=== PATIENT | female | born 1960 | race Caucasian/White ===

== ENCOUNTER 2021-12-09 13:45 | Emergency (ER) | payer MEDICAID ==
[2021-12-09] MEDS ORDERED: ALBUTEROL 1 PUFF INH STA (14:36)
--- NOTE | 2021-12-09 14:38 | XRAY Report ---
PROCEDURE: Chest 1 View X-Ray INDICATIONS: SOA TECHNIQUE: One view of the chest was acquired. COMPARISON: None FINDINGS: Surgical changes and devices: None. Lungs and pleura: No pleural effusions or pneumothorax. Lungs are clear. Mediastinum: Mediastinal contours appear normal. Heart size is normal. Bones and chest wall: No suspicious bony lesions. Overlying soft tissues appear unremarkable. IMPRESSION: No acute cardiopulmonary process demonstrated radiographically. Reviewed by: Yoni Singleton MD on 12/09/2021 2:37 PM PDT Approved by: Yoni Singleton MD on 12/09/2021 2:37 PM PDT Station ID: [id number]
--- NOTE | 2021-12-09 14:39 | ED Physician Documentation ---
History of Present Illness - Stated complaint Stated Complaint: COUGH/WEAKNESS - Chief complaint Chief Complaint: General - Additonal information Additional information: 61-year-old female who has a history of COPD presents emergency department for evaluation of 2 weeks productive cough as well as generalized body aches. She denies any fevers. She just completed a course of azithromycin as well as a steroid burst. She has been out of her Spiriva for about 2 weeks and can fill it tomorrow. She is not yet vaccinated for COVID-19. She denies nausea or vomiting, loss of taste or smell. Denies any chest spurring or exertional dyspnea. Review of Systems Constitutional: reports: Myalgias, Fatigue. denies: Fever, Chills Eyes: reports: Reviewed and negative Nose: reports: Reviewed and negative Throat: reports: Reviewed and negative Cardiac: reports: Reviewed and negative Respiratory: reports: Dyspnea, Cough. denies: Hemoptysis, Wheezing GI: reports: Reviewed and negative : reports: Reviewed and negative Skin: reports: Reviewed and negative Musculoskeletal: reports: Reviewed and negative PD PAST MEDICAL HISTORY - Present Medications Home Medications: Ambulatory Orders Medication Instructions Recorded Confirmed Benzonatate [Tessalon] 200 mg PO TID PRN #20 cap 12/09/21 - Allergies Allergies/Adverse Reactions: Allergies Allergy/AdvReac Type Severity Reaction Status Date / Time No Known Drug Allergies Allergy Verified 12/09/21 13:54 PD ED PE NORMAL - General General: Alert and oriented X 3, No acute distress, Well developed/nourished - HEENT HEENT: Atraumatic, Moist mucous membranes, Pharynx benign - Neck Neck: Supple, no meningeal sign, No adenopathy - Cardiac Cardiac: RRR, No murmur - Respiratory Respiratory: No respiratory distress, Clear bilaterally - Abdomen Abdomen: Normal bowel sounds, Soft, Non tender - Derm Derm: Normal color, Warm and dry, No rash - Extremities Extremities: No deformity, No tenderness to palpate, Normal ROM s pain - Neuro Neuro: Alert and oriented X 3, census clerk 2-12 intact Eye Opening: Spontaneous Motor: Obeys Commands Verbal: Oriented GCS Score: 15 Results - Vitals Vitals: Vital Signs - 24 hr 12/09/21 13:49 Temperature 36.8 C Heart Rate 108 H Respiratory 18 Rate Blood Pressure 120/79 O2 Saturation 96 Oxygen O2 Source Room air - Rads (name of study) cxr Radiology: Final report received (No acute cardiopulmonary process) PD MEDICAL DECISION MAKING - ED course Complexity details: reviewed results, re-evaluated patient, considered differential, d/w patient ED course: 61-year-old female who has a history of COPD presents emergency department for evaluation of body aches and cough. She has a baseline cough that has been somewhat worse over the last 2 weeks. She recently completed a course of steroids as well as azithromycin for suspected COPD/bronchitis. Chest x-ray today is unrevealing without findings of pneumonia or any focal infiltrates. Her cardiopulmonary auscultation is also reassuring no wheeze or rhonchi was noted. Room air saturations are 100%. Patient is not yet vaccinated for COVID- 19 and this screen is pending. She has been out of her Spiriva for about 2 weeks and is going to be able to fill it tomorrow. I do suspect that this may be a contributing cause for her worsening cough. She did receive albuterol here in the emergency department using a spacer which she feels is helpful thus she will be discharged with a spacer. She does have albuterol refills available at home. Prescription for Tessalon Perles is sent to the pharmacy. Patient is adamant that she will never receive the COVID-19 vaccination but she is interested in knowing if she could have Covid as a cause for her body aches and myalgias. Departure - Departure Disposition: 01 Home, Self Care Clinical Impression: Cough, History of COPD, Myalgia Condition: Stable Record reviewed to determine appropriate education?: Yes Prescriptions: Benzonatate [Tessalon] 200 mg PO TID PRN #20 cap PRN Reason: Cough Comments: Evelyne you are seen today in the emergency department for cough and body aches. Your chest x-ray is essentially normal. There are no findings to suggest pneumonia. As we discussed at the bedside I suspect that one of the reasons you have had a more persistent cough recently has been that you are out of the Spiriva. It is important that you fill this tomorrow and begin taking as prescribed. If you are going to use the albuterol at home I do recommend that you always use the spacer. The spacer ensures that the medication is aerosolized and you are able to breathe it into your lungs instead of simply spraying the back of your mouth. A prescription for Tessalon Perles has been sent to the [facility] in [place]. This may help reduce the severity of your cough. We do have a COVID-19 test pending on you. I do recommend that you get the COVID-19 vaccination when you are able. If at any point you find that your cough is worsening, you have fevers, severe shortness of air or chest pain then please return immediately to the ER for a second evaluation.
[2021-12-09 15:14] VITALS: BP 114/70
== END 2021-12-09 15:11 | disposition home or self-care (01) ==
LOC: ED 13:45
DX: J44.9 Chronic obstructive pulmonary disease, unspecified (principal); R05.9 Cough, unspecified; M79.10 Myalgia, unspecified site; Z20.822 Contact with and (suspected) exposure to COVID-19
CPT/HCPCS: 94640; 94664; 99283; 99284

== ENCOUNTER 2022-01-19 13:40 | Emergency (ER) | payer MEDICAID ==
[2022-01-19 13:51] VITALS: BP 117/80
[2022-01-19 14:10] LABS: BASOPHILS % (AUTO) 0.5 %; EOSINOPHILS % (AUTO) 0.2 %; HCT - HEMATOCRIT 38.6 % (37.0-47.0); HGB - HEMOGLOBIN 13.3 g/dL (12.0-16.0); LYMPHOCYTES # (AUTO) 1.7 10^3/uL (1.5-3.5); LYMPHOCYTES % (AUTO) 37.8 %; MEAN CORPUSCULAR HEMOGLOBIN 29.1 pg (27.0-31.0); MEAN CORPUSCULAR HGB CONC 34.5 g/dL (32.0-36.0); MEAN CORPUSCULAR VOLUME 84.5 fL (81.0-99.0); MEAN PLATELET VOLUME 9.4 fL (7.9-10.8); MONOCYTES # (AUTO) 0.3 10^3/uL (0.0-1.0); MONOCYTES % (AUTO) 6.6 %; NEUTROPHILS # (AUTO) 2.4 10^3/uL (1.5-6.6); NEUTROPHILS % (AUTO) 54.9 %; PLT - PLATELET COUNT 141 10^3/uL (130-450); RED BLOOD COUNT 4.57 10^6/uL (4.20-5.40); WHITE BLOOD COUNT 4.4 x10^3/uL (4.8-10.8)
--- NOTE | 2022-01-19 14:13 | ED Physician Documentation ---
PD HPI ABD PAIN - Stated complaint Stated Complaint: ABD PX - Chief complaint Chief Complaint: Abd Pain - History obtained from History obtained from: Patient - History of Present Illness Timing - onset: How many days ago (3-4) Timing - duration: Days (has had umbilical hernia for months and saw surgeon in [place] before moving here recently. It has been more painful and larger the past few days. Has had firm stools/constipation as well. Does not yet have local providers. Has applied to change type for [place] insurance that will start on February 09.) Timing - details: Gradual onset, Intermittant Quality: Cramping, Aching, Pain Location: Periumbilical Radiation: No: Lower back Improved by: Position (standing and lifting is when the hernia most noticable. Lying down is least.) Associated symptoms: Constipation. No: Fever, Nausea, Vomiting, Diarrhea Similar symptoms before: Diagnosis (umbilical hernia) Review of Systems Constitutional: denies: Fever, Chills Nose: denies: Rhinorrhea / runny nose, Congestion Throat: denies: Sore throat Respiratory: denies: Cough GI: reports: Abdominal Pain, Nausea, Constipation. denies: Vomiting, Diarrhea : denies: Dysuria PD PAST MEDICAL HISTORY - Past Medical History Cardiovascular: None Respiratory: None - Present Medications Home Medications: Ambulatory Orders Medication Instructions Recorded Confirmed Benzonatate [Tessalon] 200 mg PO TID PRN #20 cap 12/09/21 Tiotropium [place] [Spiriva] 2 puffs INH DAILY 30 Days #1 each 12/11/21 Docusate Sodium 100Mg Capsule 100 mg PO BID 15 Days #30 cap 01/19/22 [Colace 100Mg Capsule] Ibuprofen [Motrin] 600 mg PO TID PRN #25 tab 01/19/22 - Allergies Allergies/Adverse Reactions: Allergies Allergy/AdvReac Type Severity Reaction Status Date / Time No Known Drug Allergies Allergy Verified 01/19/22 13:51 PD ED PE NORMAL - Vitals Vital signs reviewed: Yes - General General: Alert and oriented X 3, No acute distress, Well developed/nourished - Cardiac Cardiac: RRR, No murmur - Respiratory Respiratory: Clear bilaterally - Abdomen Abdomen: Normal bowel sounds, Soft, Non tender, Non distended, No organomegaly, Other (infraumbilical hernia noted standing, but soft and reducible. Lying down it mostly disappears, but I can feel hernia defect that feels about 3 cm size. ) - Derm Derm: Normal color, Warm and dry Results - Vitals Vitals: Vital Signs - 24 hr 01/19/22 13:47 Temperature 35.9 C L Heart Rate 79 Respiratory 14 Rate Blood Pressure 117/80 O2 Saturation 95 Oxygen O2 Source Room air - Labs Labs: Laboratory Tests 01/19/22 01/19/22 01/19/22 14:02 14:02 14:18 WBC 4.4 L RBC 4.57 Hgb 13.3 Hct 38.6 MCV 84.5 MCH 29.1 MCHC 34.5 RDW 12.0 Plt Count 141 MPV 9.4 Neut # (Auto) 2.4 Lymph # (Auto) 1.7 Marion # (Auto) 0.3 Eos # (Auto) 0.0 Baso # (Auto) 0.0 Absolute Nucleated RBC 0.00 Nucleated RBC % 0.0 Sodium 138 Potassium 3.8 Chloride 103 Carbon Dioxide 24 Anion Gap 11.0 BUN 19 Creatinine 0.8 Estimated GFR (MDRD) 73 L Glucose 96 Calcium 9.6 Total Bilirubin 0.5 AST 17 ALT 13 Alkaline Phosphatase 48 Total Protein 6.9 Albumin 4.3 Globulin 2.6 Albumin/Globulin Ratio 1.7 Lipase 35 Urine Color YELLOW Urine Clarity CLEAR Urine pH 6.0 Ur Specific [place] >=1.030 H Urine Protein NEGATIVE Urine Glucose (UA) NEGATIVE Urine Ketones NEGATIVE Urine Occult Blood NEGATIVE Urine Nitrite NEGATIVE Urine Bilirubin NEGATIVE Urine Urobilinogen 0.2 (NORMAL) Ur Leukocyte Esterase NEGATIVE Ur Microscopic Review NOT INDICATED Urine Culture Comments NOT INDICATED PD MEDICAL DECISION MAKING - ED course Complexity details: considered differential (has umbilical hernia that is hurting more recently, and has had some constipation, so likely that is increaseing abd pressure. Not incarcerated and does not seem causing obstruction. Can refer to Surgery and also local primary care clinics. ), d/w patient Departure - Departure Disposition: 01 Home, Self Care Clinical Impression: Umbilical hernia Qualifiers: Obstruction and gangrene presence: without obstruction or gangrene Qualified Code(s): K42.9 - Umbilical hernia without obstruction or gangrene Constipation Qualifiers: Constipation type: unspecified constipation type Qualified Code(s): K59.00 - Constipation, unspecified Condition: Stable Record reviewed to determine appropriate education?: Yes Instructions: ED Hernia Inguinal Follow-Up: Jorge L Mcclure MD [Provider Admit Priv/Credential] - Surgical Care [Provider Group] [facility] [place] [Provider Group] [facility] [Provider Group] Prescriptions: Docusate Sodium 100Mg Capsule [Colace 100Mg Capsule] 100 mg PO BID 15 Days #30 cap Ibuprofen [Motrin] 600 mg PO TID PRN #25 tab PRN Reason: Pain Comments: Stay well-hydrated. Use daily stool softener, I would suggest twice daily for the next week or so and then once a day after that for her soft stools. This will help reduce the amount of protrusion of the hernia. You can also use an anti-inflammatory such as ibuprofen 2-3 times daily to help with pain or discomfort. I provided a couple of names for primary care groups in [place] and also to the surgical groups. Call the surgical groups and arrange a follow-up appointment for when your insurance kicks in at the beginning of the month. You will need to consult with surgery regarding subsequent repair of the hernia. Return to the ER if significant pain, tenderness, vomiting or other concerns with the hernia that may suggest it being trapped or causing an obstruction. Discharge Date/Time: 01/19/22 15:04
[2022-01-19 14:19] LABS: ALBUMIN 4.3 g/dL (3.2-5.5); ALBUMIN/GLOBULIN RATIO 1.7 (1.0-2.2); BILIRUBIN,TOTAL 0.5 mg/dL (0.2-1.0); CALCIUM 9.6 mg/dL (8.5-10.3); CREATININE 0.8 mg/dL (0.4-1.0); POTASSIUM 3.8 mmol/L (3.5-5.0); TOTAL PROTEIN 6.9 g/dL (6.7-8.2)
[2022-01-19 14:25] LABS: BILIRUBIN,URINE NEGATIVE (NEGATIVE); GLUCOSE, URINE (UA) NEGATIVE (NEGATIVE); KETONES,URINE (UA) NEGATIVE (NEGATIVE); LEUKOCYTE ESTERASE, URINE NEGATIVE (NEGATIVE); NITRITE,URINE NEGATIVE (NEGATIVE); OCCULT BLOOD,URINE NEGATIVE (NEGATIVE); PROTEIN,URINE NEGATIVE (NEGATIVE); UROBILINOGEN,URINE 0.2 (NORMAL) E.U./dL (NORMAL)
[2022-01-19 14:46] LABS: CLARITY,URINE CLEAR (CLEAR)
[2022-01-19] MEDS: ACETAMINOPHEN 325 MG TABLET PO STA (15:04)
[2022-01-19] MEDS: IBUPROFEN 400 MG TABLET PO STA (15:04)
[2022-01-19] MEDS: DOCUSATE SODIUM 100 MG CAPSULE PO STA (15:04)
== END 2022-01-19 15:04 | disposition home or self-care (01) ==
LOC: ED 13:40
DX: K42.9 Umbilical hernia without obstruction or gangrene (principal); R19.7 Diarrhea, unspecified
CPT/HCPCS: 36415; 80053; 81003; 83690; 85025; 99283; 99284; A9270; 81001; 87086

== ENCOUNTER 2022-05-09 08:00 | Outpatient (CLI) | payer MEDICAID ==
[2022-05-09 18:10] LABS: BILIRUBIN,URINE NEGATIVE (NEGATIVE); GLUCOSE, URINE (UA) NEGATIVE (NEGATIVE); KETONES,URINE (UA) NEGATIVE (NEGATIVE); LEUKOCYTE ESTERASE, URINE NEGATIVE (NEGATIVE); NITRITE,URINE NEGATIVE (NEGATIVE); OCCULT BLOOD,URINE NEGATIVE (NEGATIVE); PROTEIN,URINE NEGATIVE (NEGATIVE); UROBILINOGEN,URINE 0.2 (NORMAL) E.U./dL (NORMAL)
[2022-05-09 18:29] LABS: BACTERIA,URINE None Seen /HPF (None Seen); CLARITY,URINE CLEAR (CLEAR); RBC,URINE None Seen /HPF (0-5); SQUAMOUS EPITHELIAL CELL,UR FEW Squamous (<= Few); WBC,URINE 0-3 /HPF (0-5)
== END 2022-05-09 23:59 | disposition home or self-care (01) ==
LOC: LAB.N 08:00
PROVIDERS: ATTEND Nurse Practitioner Family
DX: R35.1 Nocturia (principal); R39.14 Feeling of incomplete bladder emptying
CPT/HCPCS: 81001; 87086

== ENCOUNTER 2022-05-11 14:44 | Emergency (ER) | payer MEDICAID ==
[2022-05-11 14:56] VITALS: BP 126/86
--- NOTE | 2022-05-11 15:11 | ED Physician Documentation ---
History of Present Illness - Stated complaint Stated Complaint: LEFT KNEE INJ - Chief complaint Chief Complaint: Trauma Ext - Additonal information Additional information: 61-year-old female presents emergency department for evaluation of acute left knee pain. She reports being intoxicated 5 nights ago and falling. She does not remember the events of the fall. When she woke up the next morning in her bed she had some pain on the medial portion of the knee. There is really no pain at rest but only when she is bearing weight or attempts to elevate the leg. No swelling or ecchymosis. No history of similar in the past. She is not anticoagulated. Denies striking her head or pain elsewhere after the fall Review of Systems Constitutional: reports: Reviewed and negative Ears: reports: Reviewed and negative Throat: reports: Reviewed and negative GI: reports: Reviewed and negative Musculoskeletal: reports: Joint pain Neurologic: reports: Reviewed and negative Psychiatric: reports: Reviewed and negative PD PAST MEDICAL HISTORY - Past Medical History Past Medical History: No Cardiovascular: None Respiratory: None - Present Medications Home Medications: Ambulatory Orders Medication Instructions Recorded Confirmed Benzonatate [Tessalon] 200 mg PO TID PRN #20 cap 12/09/21 Tiotropium [place] [Spiriva] 2 puffs INH DAILY 30 Days #1 each 12/11/21 Docusate Sodium 100Mg Capsule 100 mg PO BID 15 Days #30 cap 01/19/22 [Colace 100Mg Capsule] Ibuprofen [Motrin] 600 mg PO TID PRN #25 tab 01/19/22 - Allergies Allergies/Adverse Reactions: Allergies Allergy/AdvReac Type Severity Reaction Status Date / Time No Known Drug Allergies Allergy Verified 05/11/22 14:56 - Social History Does the pt smoke?: No Smoking Status: Never smoker PD ED PE EXPANDED - General General: Alert, No acute distress - Extremities Extremities: Left knee (normal flexion/extension leg. No laxity, negative grind test. 2+ DP pulse distally) Results - Vitals Vitals: Vital Signs - 24 hr 05/11/22 14:53 Temperature 36.8 C Heart Rate 85 Respiratory 16 Rate Blood Pressure 126/86 H O2 Saturation 98 Oxygen O2 Source Room air - Rads (name of study) left knee Radiology: Final report received (Mild to moderate tricompartmental arthritis. No acute fracture or dislocation. Moderate suprapatellar joint effusion) PD MEDICAL DECISION MAKING - ED course Complexity details: considered differential, d/w patient ED course: 61-year-old female presents emergency department for evaluation of acute left knee pain sustained after falling 4 nights ago when intoxicated. She did not appear to sustain any other traumatic injury. She has some pain on the lateral portion of the knee. X-ray shows a small amount of suprapatellar joint effus ion. There is no laxity on exam. X-ray does show that she has some moderate tricompartmental arthritis. These findings were discussed with the patient. She was placed in an Elver bandage. Recommend Tylenol and ibuprofen at home. Crutches were given to aid in ambulation. Advise if not markedly better in 7 to 10 days should follow-up with PCP. May benefit from referral to orthopedics or physical therapy at that time. Departure - Departure Disposition: 01 Home, Self Care Clinical Impression: Arthritis of left knee Left knee sprain Qualifiers: Encounter type: initial encounter Involved ligament of knee: other ligament Qualified Code(s): S83.8X2A - Sprain of other specified parts of left knee, initial encounter Condition: Stable Record reviewed to determine appropriate education?: Yes Instructions: ED Sprain Knee Comments: You are seen today for pain in the left knee after falling a number of days ago. I suspect that you sprained the knee. The x-ray however does show that you have fairly moderate arthritis in all the joints of the knee. I would like you to wear the Elver wrap when out of bed for the next week or so. You can take Tylenol and ibuprofen [id number]. You can use the crutches to aid in ambulation. If you find that despite this treatment your symptoms or not ge tting better your primary care doctor may want to make a referral for you to physical therapy or orthopedics for further follow-up
--- NOTE | 2022-05-11 15:30 | XRAY Report ---
PROCEDURE: Knee 3 View LT INDICATIONS: pain after a fall TECHNIQUE: 3 views of the left knee(s) were acquired. COMPARISON: None. FINDINGS: Bones: No fractures or dislocations. Mild to moderate tricompartmental osteoarthritis is noted more prominent in medial femoral tibial compartment. No suspicious bony lesions. Soft tissues: Moderate suprapatellar joint effusion is seen. No suspicious soft tissue calcificatio ns. IMPRESSION: Mild to moderate tricompartmental osteoarthritis. No acute fracture or dislocation. Mode rate suprapatellar joint effusion. Reviewed by: Vince Alex MD on 05/11/2022 3:28 PM PDT Approved by: Vince Alex MD on 05/11/2022 3:28 PM PDT Station ID: [id number]
== END 2022-05-11 16:37 | disposition home or self-care (01) ==
LOC: ED 14:44
DX: M17.12 Unilateral primary osteoarthritis, left knee (principal); S83.8X2A Sprain of other specified parts of left knee, initial encounter; W19.XXXA Unspecified fall, initial encounter
CPT/HCPCS: 99282; 99283

== ENCOUNTER 2022-05-19 09:17 | Outpatient (CLI) | payer MEDICAID ==
--- NOTE | 2022-05-20 08:04 | Mammography Report ---
BILATERAL DIGITAL SCREENING MAMMOGRAM 3D/2D: 05/19/2022 CLINICAL: Baseline exam. Routine screening. No prior exams were available for comparison. Both breasts are heterogeneously dense, which may obscure small masses (category c / 51-75% glandula r tissue). No significant masses, calcifications, or other findings are seen in either breast. IMPRESSION: NEGATIVE There is no mammographic evidence of malignancy. A 1 year screening mammogram is recommended. Based on the Tyrer Cuzick model (a risk assessment model) the patients lifetime risk is 8.0% and her 10 year risk is 3.1%. According to the ACR, ACS, and NCCN guidelines, an annual breast MRI exam lilia g with mammogram is recommended if the patients lifetime risk is 20% or greater. This exam was interpreted at Station ID: [id number]. NOTE: For mammograms, a report in lay terms will be sent to the patient. Approximately 15% of breast malignancies will not be visualized mammographically. In the management of a palpable breast mass, a negative mammogram must not discourage biopsy of a clinically suspicious lesion. Electronically Signed By: Sumit Reynolds M.D. slc/penrad:05/19/2022 12:40:30 ACR BI-RADS Category 1: Negative 3341F PARENCHYMAL PATTERN: (D) - The breast(s) demonstrate(s) heterogeneously dense fibroglandular tiffany morales. BI-RADS CATEGORY: (1) - 1 RECOMMENDATION: (ANNUAL) - Recommend routine annual screening mammography. [id number] 1 year screening LATERALITY: (B)
== END 2022-05-19 09:18 | disposition home or self-care (01) ==
LOC: DI.N 09:17
PROVIDERS: ATTEND Nurse Practitioner Family
DX: Z12.31 Encounter for screening mammogram for malignant neoplasm of breast (principal)

== ENCOUNTER 2022-07-22 15:23 | Outpatient (CLI) | payer MEDICAID ==
--- NOTE | 2022-07-22 17:37 | CT Report ---
PROCEDURE: Abdomen and pelvis without INDICATIONS: VENTRAL HERNIA CONTRAST: None TECHNIQUE: After the administration of oral contrast, 5 mm thick sections acquired from the diaphragms to the pe lvis. 5 mm coronal and sagittal reformats were then performed. For radiation dose reduction, the fo llowing was used: automated exposure control, adjustment of mA and/or kV according to patient size. COMPARISON: None FINDINGS: Image quality: Excellent Lower chest: Basal atelectasis/scarring. Solid organs: Evaluation is limited by lack of intravenous contrast. The liver is unremarkable. Gallb ladder is underdistended. No biliary ductal dilation or pancreatic ductal dilation. Bulging contour o f the spleen measuring up to 5.6 cm at the hilum may represent a large splenule or other angiomatous lesion of the spleen, indeterminate. No adrenal nodules. Bosniak 1 and 2 renal lesions are present, for which no dedicated follow-up is ne cessary per 2019 proposed guidelines. No hydronephrosis. Vessels and lymph nodes: No abdominal aortic aneurysm. No pathologic adenopathy by size criteria. Bowel and peritoneum: No bowel obstruction or pathologic ascites. There are colonic diverticula. Body wall: Midline ventral hernia containing fat and omentum is seen, with neck measuring 2.3 x 2.5 c m. The omentum is mildly congested in this region. Prior midline incision scar is present. Pelvis: Not well evaluated, hysterectomy. Bones: No acute or suspicious osseous abnormality. There are degenerative changes. IMPRESSION: Midline ventral hernia as described above, containing mildly congested omentum and fat. Other incidental findings above. The indeterminate splenic finding can be further evaluated with MRI. If the patient does not have a primary history of malignancy, this is favored to be benign. Reviewed by: Carlos Cruz MD on 07/22/2022 5:35 PM PST Approved by: Carlos Cruz MD on 07/22/2022 5:35 PM PST Station ID: [id number]
== END 2022-07-22 15:24 | disposition home or self-care (01) ==
LOC: DI 15:23
PROVIDERS: ATTEND Surgery
DX: K43.2 Incisional hernia without obstruction or gangrene (principal)

== ENCOUNTER 2022-08-13 15:15 | Outpatient (CLI) | payer MEDICAID ==
--- NOTE | 2022-08-13 15:53 | XRAY Report ---
PROCEDURE: Chest 2 View X-Ray INDICATIONS: CONGESTION OF NASAL SINUS TECHNIQUE: 2 views of the chest were acquired. COMPARISON: 12/09/2021 FINDINGS: Surgical changes and devices: None. Lungs and pleura: No pleural effusions or pneumothorax. Lungs are clear. Mediastinum: Mediastinal contours are normal. Heart size is normal. Bones and chest wall: No suspicious bony abnormalities. Age-appropriate degenerative changes are see n. Soft tissues appear unremarkable. IMPRESSION: Clear lungs, without infiltrates. Reviewed by: Malick Sidhu MD on 08/13/2022 2:52 PM [facility] Approved by: Malick Sidhu MD on 08/13/2022 2:52 PM [facility] Station ID: [id number]
== END 2022-08-13 15:16 | disposition home or self-care (01) ==
LOC: DI 15:15
PROVIDERS: ATTEND Registered Nurse
DX: J22 Unspecified acute lower respiratory infection (principal); J44.1 Chronic obstructive pulmonary disease with (acute) exacerbation; R09.81 Nasal congestion

== ENCOUNTER 2022-08-30 10:56 | Day surgery (SDC) | payer MEDICAID ==
[~2022-08-30 10:56] MED LIST: PROPOFOL 500 MG/50 ML 500 MG/50 ML VIAL ONE
--- NOTE | 2022-08-30 11:07 | ANESTHESIA ---
Pre-Anesthesia VS, & Labs - Diagnosis screening colonoscopy - Procedure Colonoascopy Height: 5 ft 8 in - NPO Other (prep as directed) - Is Patient ?: No Home Medications and Allergies Home Medications: Ambulatory Orders Quetiapine Fumarate [Seroquel] 1 tab PO DAILY 08/29/22 hydrOXYzine HCL [Hydroxyzine HCl] 1 tab PO DAILY 08/29/22 traZODone [Desyrel] 300 mg PO HS 08/29/22 Quetiapine Fumarate [Seroquel] 1 tab PO DAILY 08/29/22 hydrOXYzine HCL [Hydroxyzine HCl] 1 tab PO DAILY 08/29/22 traZODone [Desyrel] 300 mg PO HS 08/29/22 Allergies/Adverse Reactions: Allergies Allergy/AdvReac Type Severity Reaction Status Date / Time No Known Drug Allergies Allergy Verified 05/11/22 14:56 Anes History & Medical History - Anesthetic History Anesthesia Complications: reports: No previous complications - Medical History Cardiovascular: reports: None Pulmonary: reports: COPD Gastrointestinal: reports: Chronic constipation Urinary: reports: Retention, Nocturia Endocrine/Autoimmune: reports: None Skin: reports: None Smoking Status: Never smoker Psychosocial: reports: Alcohol (h/o abuse) - Surgical History General: reports: Other Eyes Ears Nose Throat (EENT): reports: Tonsil/Adenoidectomy Gynecologic: reports: section, Dilation and currettage, Hysterectomy Exam General: Alert, Oriented x3 Dental: WNL Mouth Opening: Greater than 4 Fingerbreadths Neck Mobility: Normal Mallampati classification: II Thyromental Distance: greater than 6 cm Respiratory: Lungs clear Cardiovascular: Regular rate Plan Anesthesia Type: Total IV Consent for Procedure(s) Verified and Reviewed: Yes Code Status: Attempt Resuscitation ASA classification: 3-Severe systemic disease Is this case an emergency?: No
[2022-08-30] MEDS ORDERED: LACTATED RINGERS 1,000 ML IV ONE ×2 (11:22→12:34)
[2022-08-30] MEDS ORDERED: PROPOFOL 200 MG/20 ML VIAL IVP ONE ×2 (12:09→12:23)
[2022-08-30] MEDS ORDERED: ONDANSETRON 4 MG/2 ML VIAL ONE (12:39)
[2022-08-30 12:54] VITALS: BP 107/71
--- NOTE | 2022-08-30 13:29 | ANESTHESIA POST OP EVALUATION ---
Anesthesia Post Eval - Post Anesthesia Eval Vitals: Last Vital Signs Temp 37 C 08/30/22 12:34 Pulse 72 08/30/22 12:48 Resp 24 08/30/22 12:48 BP 107/71 08/30/22 12:48 Pulse Ox 100 08/30/22 12:48 O2 Flow Rate CV Function Including HR & BP: Stable Pain Control: Satisfactory Nausea & Vomiting: Negative Mental Status: Baseline Respiratory Status: Airway Patent Hydration Status: Satisfactory Anesthesia Complications: None
== END 2022-08-30 10:57 | disposition home or self-care (01) ==
LOC: SDS 10:56
PROVIDERS: ATTEND Surgery
DX: Z12.11 Encounter for screening for malignant neoplasm of colon (principal); K57.30 Diverticulosis of large intestine without perforation or abscess without bleeding; J44.9 Chronic obstructive pulmonary disease, unspecified
CPT/HCPCS: 45378; J7120

== ENCOUNTER 2022-12-05 06:19 | Day surgery (SDC) | payer MEDICAID ==
[~2022-12-05 06:19] MED LIST changes: +CEFAZOLIN 2G/50ML 0.9% NS 2 GM/50 ML BAG IV ONE; +CELECOXIB 100 MG CAPSULE PO ONE; +GABAPENTIN 400 MG CAPSULE ONE; -PROPOFOL 500 MG/50 ML 500 MG/50 ML VIAL ONE
[2022-12-05] MEDS ORDERED: ACETAMINOPHEN 500 MG TABLET PO ONE (06:37)
[2022-12-05] MEDS ORDERED: LACTATED RINGERS 1,000 ML IV ONE ×2 (07:08→09:37)
--- NOTE | 2022-12-05 07:13 | ANESTHESIA ---
Pre-Anesthesia VS, & Labs - Diagnosis ventral incisional hernia - Procedure open ventral hernia repair with mesh Vital Signs: Temp Pulse Resp BP Pulse Ox O2 Flow Rate 36.3 C L 16 L 16 127/81 H 99 12/05/22 06:42 12/05/22 06:42 12/05/22 06:42 12/05/22 06:42 12/05/22 06:42 Height: 5 ft 8 in Weight (kg): 92.8 kg Body Mass Index: 31.1 BMI Classification: Obese - NPO >8 hours - Is Patient ?: No Home Medications and Allergies Home Medications: Ambulatory Orders Albuterol Sulf [Ventolin Hfa Inhaler] 1 - 2 puffs INH Q4HR PRN 12/01/22 Docusate Sodium 100Mg Capsule [Colace 100Mg Capsule] 300 mg PO QPM 12/01/22 Multivit-Min/Folic Acid/Biotin [Hair, Skin and Nails Caplet] 3 each PO DAILY 12/01/22 Quetiapine Fumarate [Seroquel] 400 mg PO DAILY 08/29/22 hydrOXYzine HCL [Hydroxyzine HCl] 50 mg PO DAILY 08/29/22 traZODone [Desyrel] 300 mg PO HS 08/29/22 Albuterol Sulf [Ventolin Hfa Inhaler] 1 - 2 puffs INH Q4HR PRN 12/01/22 Docusate Sodium 100Mg Capsule [Colace 100Mg Capsule] 300 mg PO QPM 12/01/22 Multivit-Min/Folic Acid/Biotin [Hair, Skin and Nails Caplet] 3 each PO DAILY 12/01/22 Allergies/Adverse Reactions: Allergies Allergy/AdvReac Type Severity Reaction Status Date / Time No Known Drug Allergies Allergy Verified 05/11/22 14:56 Anes History & Medical History - Anesthetic History Anesthesia Complications: reports: No previous complications - Medical History Cardiovascular: reports: None Pulmonary: reports: COPD Gastrointestinal: reports: Chronic constipation, Hepatitis, Diverticulitis Urinary: reports: Retention, Nocturia Neuro: reports: None Musculoskeletal: reports: None Endocrine/Autoimmune: reports: None Skin: reports: None Smoking Status: Former smoker (quit 8 years ago) Psychosocial: reports: Alcohol (recovered) History of Cancer?: No - Surgical History General: reports: Other Eyes Ears Nose Throat (EENT): reports: Tonsil/Adenoidectomy Gynecologic: reports: section, Dilation and currettage, Hysterectomy Exam General: Alert, Oriented x3, Cooperative, No acute distress Dental: Poor dentition Mouth and Teeth Image: 1 - loose Mouth Openin Fingerbreadth Neck Mobility: Normal Mallampati classification: II Thyromental Distance: 4-6 cm Mental/Cognitive Status: Alert/Oriented X3, Normal for patient Plan Anesthesia Type: General Consent for Procedure(s) Verified and Reviewed: Yes Code Status: Attempt Resuscitation ASA classification: 2-Mild systemic disease Is this case an emergency?: No
[2022-12-05] MEDS ORDERED: LIDOCAINE MPF 2%-EPI 1:200000 20 ML VIAL ONE (07:15)
[2022-12-05] MEDS ORDERED: BUPIVACAINE 0.5% PF 30 ML VIAL ONE (07:15)
[2022-12-05] MEDS ORDERED: PROPOFOL 200 MG/20 ML VIAL IVP ONE ×2 (07:19→10:43)
[2022-12-05] MEDS ORDERED: fentaNYL 100 MCG/2 ML VIAL ONE ×2 (07:19→07:51)
[2022-12-05] MEDS ORDERED: MIDAZOLAM 2 MG/2 ML VIAL ONE (07:19)
[2022-12-05] MEDS ORDERED: DEXAMETHASONE 4 MG/ML VIAL ONE (07:50)
[2022-12-05] MEDS ORDERED: ONDANSETRON 4 MG/2 ML VIAL ONE (07:50)
[2022-12-05] MEDS ORDERED: LIDOCAINE MPF 2%-EPI 1:200000 20 ML VIAL SUBQ ONE ×2 (08:01)
[2022-12-05] MEDS ORDERED: BUPIVACAINE 0.5% PF 30 ML VIAL SUBQ ONE ×2 (08:01)
[2022-12-05] MEDS ORDERED: HYDROmorphone 1 MG/ML CARPUJECT ONE (08:25)
--- NOTE | 2022-12-05 09:41 | OPERATIVE REPORT ---
Operative Report - General Procedure Date: 12/05/22 Planned Procedure: open incisional hernia repair with mesh Pre-Op Diagnosis: incisional hernia Procedure Performed: open incisional hernia repair with mesh Post Op Diagnosis: incisional hernia - Procedure Note Primary Surgeon: Dr. Diana Rawls Anesthesia Provider: Cami Buitrago Anesthesia Technique: General ET tube, Local Estimated Blood Loss (mL): 10 Indications: The patient had an exploratory laparotomy many years ago for a benign ovarian tumor and hysterectomy. Over the last year and a half, she has developed a painful bulge along the superior aspect of her incision. The area has gotten larger and more painful to her. It interferes with her daily life and prohibits activities such as lifting. The patient was seen and evaluated in the clinic. We discussed the risks, benefits, and alternatives of open ventral hernia repair with mesh including bleeding, infection, damage to surrounding structures, infection of the mesh requiring removal, and recurrence of the hernia. We also discussed the possible need for further surgeries or procedures. The patient voiced understanding, her questions were answered, and she wished to proceed. The patient also underwent significant presurgery lifestyle changes to improve her postoperative outcome. A consent was signed in clinic. Findings: 1.3 cm fascial defect 2.Ventralex ST mesh, 6.4cm used Complications: none - Other Other Information/Narrative: The patient was brought to the operative suite and placed in the supine position. General endotracheal anesthesia was induced. Preoperative antibiotics were given. ERAS protocol was followed. A preop surgical timeout was performed. Local anesthetic was injected into the skin and subcutaneous tissues overlying t he hernia. Next, a midline incision was planned overlying the hernia, and the midline, epigastric region. The incision was made with a 10 blade scalpel. The incision was carried down through the skin and subcutaneous tissues to the level of the fascia using blunt and sharp dissection with electrocautery. The hernia sac was identified and dissected free from the surrounding tissue circumferentially. The hernia itself was easily reduced. The preperitoneal space was developed circumferentially. The area was inspected for hemostasis. The fascial edges were also cleared circumferentially. The hernia was 3 cm in greatest diameter, but the superior inferior separation was only about a centimeter and a half, and the fascial edges came together with minimal tension. A Ventralex ST mesh was brought onto the field and placed within the hernia defect. It was sewn to the anterior abdominal wall circumferentially using 2-0 PDS. Next, the fascia was reapproximated with 0 PDS in a running fashion, incorporating the anterior aspect of the mesh, the length of the incision. The mesh straps were cut and the reapproximating sutures were tied. The wound was irrigated with warm normal saline. Local was injected into the fascia adjacent to the sutures. Next, 2-0 Vicryl in an interrupted fashion was used to reapproximate Arvind's fascia. Next, 3-0 Vicryl was used to reapproximate the deep dermal tissues. Finally, 4-0 Monocryl was used in a running subcuticular fashion to reapproximate the skin edges. A sterile dressing of skin glue was placed. The patient was extubated in the operating room and transferred to the recovery room in stable condition. All counts were correct. There were no complications.
[2022-12-05] MEDS ORDERED: NALOXONE 0.4 MG/ML VIAL IVP PRN (09:44)
[2022-12-05] MEDS ORDERED: MORPHINE 2 MG/ML CARPUJECT IVP PRN (09:44)
[2022-12-05] MEDS ORDERED: ONDANSETRON 4 MG/2 ML VIAL IVP PRN ×2 (09:44→09:50)
[2022-12-05] MEDS ORDERED: HYDROmorphone 0.5 MG/0.5 ML SYRINGE IVP PRN (09:44)
[2022-12-05] MEDS ORDERED: fentaNYL 100 MCG/2 ML VIAL IVP PRN (09:44)
[2022-12-05] MEDS ORDERED: ATROPINE ABBOJECT 1 MG/10 ML SYRINGE IVP PRN (09:44)
[2022-12-05] MEDS ORDERED: ACETAMINOPHEN 500 MG TABLET PO PRN (09:50)
[2022-12-05] MEDS ORDERED: oxyCODONE 5 MG TABLET PO PRN (09:50)
[2022-12-05] MEDS ORDERED: LACTATED RINGERS 1,000 ML IV SCH (10:00)
[2022-12-05 11:51] VITALS: BP 112/74
[2022-12-05] MEDS ORDERED: oxyCODONE 5 MG TABLET ONE (11:55)
--- NOTE | 2022-12-05 16:15 | ANESTHESIA POST OP EVALUATION ---
Anesthesia Post Eval - Post Anesthesia Eval Vitals: Last Vital Signs Temp 36.7 C 12/05/22 11:45 Pulse 72 12/05/22 11:45 Resp 18 12/05/22 11:45 BP 112/74 12/05/22 11:45 Pulse Ox 98 12/05/22 11:45 O2 Flow Rate CV Function Including HR & BP: Stable Pain Control: Satisfactory Nausea & Vomiting: Negative Mental Status: Baseline Respiratory Status: Airway Patent Hydration Status: Satisfactory Anesthesia Complications: None
== END 2022-12-05 06:20 | disposition home or self-care (01) ==
LOC: SDS 06:19
PROVIDERS: ATTEND Surgery
DX: K43.2 Incisional hernia without obstruction or gangrene (principal); J44.9 Chronic obstructive pulmonary disease, unspecified; E66.9 Obesity, unspecified; Z68.31 Body mass index [BMI] 31.0-31.9, adult; Z87.891 Personal history of nicotine dependence
CPT/HCPCS: 49593; A9270; C1781; J0690; J1170; J7120